=== PATIENT | male | born 1950 | race American Indian/Alaskan Native ===

== ENCOUNTER 2020-03-09 18:31 | Emergency (ER) | payer SELFPAY ==
--- NOTE | 2020-03-09 19:35 | EDM.PDOC ---
ED HPI GENERAL MEDICAL PROBLEM - General Chief Complaint: Genitourinary Problem Stated Complaint: FREQUENT URINATION W/PAIN Time Seen by Provider: 03/09/20 19:23 Source of Information: Reports: Patient, RN Notes Reviewed History Limitations: Reports: No Limitations - History of Present Illness INITIAL COMMENTS - FREE TEXT/NARRATIVE: Patient is a 69-year-old male who presents to the ED for evaluation of his increased urinary frequency and dysuria. Patient notes that the symptoms started today, he notes that he has been going to the bathroom every 5 to 10 minutes. He also complains of pain with urination. He has a slight temperature at the time of triage, 99.0 F, but he states he has not been febrile at home. He states he does feel chilled. He has not taken any medications for this at home. He denies any nausea/vomiting/diarrhea, cough or shortness of breath. The patient notes he is from [place], and will be returning to [place] tomorrow. - Related Data Allergies Allergy/AdvReac Type Severity Reaction Status Date / Time No Known Allergies Allergy Verified 03/09/20 18:57 Home Meds: Home Meds Levofloxacin 500 mg PO DAILY #7 tablet 03/09/20 [Rx] Metoprolol Succinate 25 mg PO DAILY 03/09/20 [History] Rosuvastatin [Crestor] 10 mg PO DAILY 03/09/20 [History] Past Medical History HEENT History: Reports: Impaired Vision Cardiovascular History: Reports: High Cholesterol, Hypertension Endocrine/Metabolic History: Reports: Obesity/BMI 30+ - Infectious Disease History Infectious Disease History: Reports: Novel Coronavirus (COVID-19 roughly 2.5-3months ago) - Past Surgical History Neurological Surgical History: Reports: Other (See Below) Other Neurological Surgeries/Procedures: Ulnar nerve translocation. Social & Family History - Tobacco Use Smoking Status *Q: Never Smoker - Caffeine Use Caffeine Use: Reports: Coffee - Recreational Drug Use Recreational Drug Use: No ED ROS GENERAL - Review of Systems Review Of Systems: Comprehensive ROS is negative, except as noted in HPI. ED EXAM, RENAL/ - Physical Exam Exam: See Below Exam Limited By: No Limitations General Appearance: Alert, WD/WN, No Apparent Distress Respiratory/Chest: No Respiratory Distress, Lungs Clear, Normal Breath Sounds, No Accessory Muscle Use, Chest Non-Tender Cardiovascular: Normal Peripheral Pulses, Regular Rate, Rhythm, No Murmur Extremities: Normal Inspection, Normal Capillary Refill Neurological: Alert, Oriented, Normal Cognition, No Motor/Sensory Deficits Psychiatric: Normal Affect, Normal Mood Skin Exam: Warm, Dry, Intact, Normal Color, No Rash Course - Vital Signs Last Recorded V/S: Last Vital Signs Temp 99 F 03/09/20 18:52 Pulse 91 03/09/20 18:52 Resp 16 03/09/20 18:52 BP 147/92 H 03/09/20 18:52 Pulse Ox 96 03/09/20 18:52 - Orders/Labs/Meds Orders: Active Orders 24 hr Category Date Time Status CULTURE URINE [RM] Routine Lab 03/09/20 19:23 Ordered Labs: Laboratory Tests 03/09/20 Range/Units 18:56 Urine Color Yellow (Yellow) Urine Appearance Cloudy H (Clear) Urine pH 7.0 (5.0-8.0) Ur Specific Cades 1.020 (1.005-1.030) Urine Protein 2+ H (Negative) Urine Glucose (UA) Negative (Negative) Urine Ketones Negative (Negative) Urine Occult Blood 3+ H (Negative) Urine Nitrite Negative (Negative) Urine Bilirubin Negative (Negative) Urine Urobilinogen 0.2 (0.2-1.0) Ur Leukocyte Esterase 3+ H (Negative) Urine RBC 40-50 H (0-5) /hpf Urine WBC 50-75 H (0-5) /hpf Ur Squamous Epith Cells 0-5 (0-5) /hpf Urine Bacteria Moderate H (FEW) /hpf Urine Mucus Few (FEW) /hpf - Re-Assessments/Exams Free Text/Narrative Re-Assessment/Exam: 03/09/20 19:38 Patient presents to the ED for the evaluation of his ongoing urinary symptoms. Urinalysis was obtained at time of triage, and this does demonstrate a grossly positive UTI. Patient to be started on levofloxacin 500 mg x 7 days. He has no history of kidney stones, is not complaining of flank pain. No imaging will be done at today's visit. Departure - Departure Time of Disposition: 19:34 Disposition: Home, Self-Care 01 Condition: Good Clinical Impression: UTI, Urinary tract infectious disease - Discharge Information *PRESCRIPTION DRUG MONITORING PROGRAM REVIEWED*: No *COPY OF PRESCRIPTION DRUG MONITORING REPORT IN PATIENT JAYDA: No Prescriptions: Levofloxacin 500 mg PO DAILY #7 tablet Instructions: Urinary Tract Infection, Adult, [id number] Referrals: PCP,Not In Area [Primary Care Provider] - Forms: ED Department Discharge Additional Instructions: You have been evaluated in the ED for your urinary symptoms. Your urinalysis was consistent with an acute urinary tract infection. Your urine was sent for culture, and you will be notified if you should need a change in your antibiotic. This may take up to 48 hours to result. You may take AZO for urinary pain relief. This is available over the counter, and can be attained at any retail store like [employer] or any pharmacy. Please be aware that this medication will make your urine turn orange. You have been given a prescription for Levofloxacin, 500 mg 1 tablet daily for 7 days. This has been electronically sent to the [place] pharmacy located in the [employer] [facility] store. Please increase your oral fluid intake and try to stay adequately hydrated. Please return to the ED if your symptoms change or worsen. Sepsis Event Note (ED) - Evaluation Sepsis Screening Result: No Definite Risk - Focused Exam Vital Signs: Vital Signs Temp Pulse Resp BP Pulse Ox 03/09/20 18:52 99 F 91 16 147/92 H 96 - My Orders Last 24 Hours: My Active Orders 03/09/20 19:23 CULTURE URINE [RM] Routine - Assessment/Plan Last 24 Hours: My Active Orders 03/09/20 19:23 CULTURE URINE [RM] Routine
== END 2020-03-09 19:48 | disposition home or self-care (01) ==
LOC: JD.ED 18:31
DX: N39.0 Urinary tract infection, site not specified (principal); I10 Essential (primary) hypertension; E66.9 Obesity, unspecified; E78.00 Pure hypercholesterolemia, unspecified; Z79.899 Other long term (current) drug therapy
CPT/HCPCS: 81001; 87086; 87088; 87186; 99283